=== PATIENT | male | born 1970 | race Caucasian/White ===

== ENCOUNTER 2023-06-26 12:14 | Inpatient (IN) ==
--- NOTE | 2023-06-26 12:39 | Emergency Department Note ---
ED Provider Note History of Present Illness Chief Complaint: Fall Time Seen by Provider: 06/26/23 12:38 This is a 53-year-old male otherwise healthy on no daily medications who presents to the emergency department via EMS with low back pain secondary to a fall that occurred at work. Patient works for [employer] and was on the second rung of a ladder changing a light fixture. The ladder tipped backwards and he tried to catch himself but ended up falling directly onto his buttock. He reports pain in his tailbone and his upper low back. Describes it as very uncomfortable and difficult to find a comfortable position. He was able to get himself back up off the ground after a few minutes. He did not strike his head, no headache, neck pain, chest pain, shortness of breath, abdominal pain. Has not any bowel or bladder incontinence. Denies any numbness or tingling in his legs or toes. Was able to stand on his legs. Has not received anything for the pain yet. Denies any history of chronic back pain. Does not take blood thinners Home Medications Medication Instructions Recorded Confirmed Type albuterol sulfate 90 mcg/actuation 2 puff inhalation QID PRN 06/26/23 06/26/23 History aerosol inhaler Shortness Of Breath Or Wheezing Allergies Allergy/AdvReac Type Severity Reaction Status Date / Time animal dander AdvReac Unknown Verified 06/26/23 15:44 Past Med/Surg History Medical History Anxiety and depression Tobacco use Asthma Surgical History No pertinent past surgical history Family History (Updated 06/26/23 @ 15:47 by Yasmin Lopez PA-C) Mother Diabetes Sister Diabetes Lung cancer Father Heart disease Social History Smoking Status: Current every day smoker Tobacco Type: Cigarettes Age Started Using Tobacco: 13; Cigarettes Per Day: 1 pack per day; Second Hand Exposure: No; Do You Dip or Chew Tobacco: No; Hx Alcohol Use: No Hx Substance Use: No Preferred Language: Upper Sorbian [employer] Pet Required: No Beliefs That Will Affect Care: None Current Living Situation: Spouse and Family Other Information That Helps Us Care for You: No Feels Safe at Home: Yes Safety Concerns: Feels Safe At This Time Assistive Devices: Glasses Physical Exam Vital Signs Vital Signs - 24 hr 06/26/23 12:20 06/26/23 12:39 06/26/23 12:39 Temperature 97.7 F Temperature Source Oral Pulse Rate 85 74 Pulse Rate [Apical] 75 Pulse Rhythm [Apical] Regular Pulse Strength [Apical] Normal Respiratory Rate 18 16 Respiratory Effort / Characteristics Non-Labored Spontaneous Non-Labored Spontaneous Respiratory Depth Normal Normal Respiratory Pattern Regular Regular Blood Pressure 128/77 Blood Pressure [Right Arm] 128/77 Blood Pressure Mean 94 Blood Pressure Mean [Right Arm] 94 Blood Pressure Position Sitting Blood Pressure Position [Right Arm] Semi-fowlers Pulse Oximetry 98 99 Oxygen Delivery Method Room Air Room Air Sepsis Recent Fever Within 48 Hours No Sepsis New/Unexplained Change in Mental Status N/A Sepsis Action Taken by Nursing No Action Required 06/26/23 13:49 06/26/23 14:00 06/26/23 15:00 Temperature Temperature Source Pulse Rate 77 78 86 Pulse Rate [Apical] Pulse Rhythm [Apical] Pulse Strength [Apical] Respiratory Rate 13 14 14 Respiratory Effort / Characteristics Respiratory Depth Respiratory Pattern Blood Pressure 121/76 115/74 122/74 Blood Pressure [Right Arm] Blood Pressure Mean 91 87 90 Blood Pressure Mean [Right Arm] Blood Pressure Position Blood Pressure Position [Right Arm] Pulse Oximetry 97 97 Oxygen Delivery Method Room Air Room Air Sepsis Recent Fever Within 48 Hours Sepsis New/Unexplained Change in Mental Status Sepsis Action Taken by Nursing CONSTITUTIONAL: Well developed, well nourished, appears to be uncomfortable especially with changes in position secondary to low back pain HEAD: Normocephalic, atraumatic. NECK: Full active range of motion. No spinous process tenderness RESPIRATORY: Breathing unlabored and symmetric. Lungs clear to auscultation bilaterally. No wheeze, rales, or rhonchi. CARDIOVASCULAR: Regular rate and rhythm. No murmurs, rubs, or gallops. DP pulses 2+ bilaterally. CHEST: Nontender, no crepitus. ABDOMEN: Normal bowel sounds. Soft, nontender, no peritonitis. No masses. No CVA tenderness bilateral MUSCULOSKELETAL: Back: There is no midline thoracic tenderness. There is reproducible midline high lumbar tenderness. Mild tenderness in the sacral area. No paraspinal tenderness. No tenderness with compression of the pelvis. Patient able to perform straight leg raise bilaterally. Moves upper and lower extremities at all joints SKIN: [place], warm, dry. NEUROLOGIC: Awake, alert, oriented. Gaze is conjugate. Face symmetric. Strength 5+ in bilateral lower extremities. No sensory deficits in bilateral lower extremities. PSYCHIATRIC: Appropriate. Normal affect. Course Consultations Consultation #1: Spoke with Dr. Hough (orthospine on-call) regarding the patient's injuries. He reviewed his CT imaging. He recommends admitting the patient under the medicine team with consultation. Patient will require bracing. Can be bedrest and gentle ambulation to the restroom Administered Medications Acetaminophen (Acetaminophen 500 Mg Tab) 1,000 mg PO Q8H SERA Stop: 07/26/23 20:59 Last Admin: 06/26/23 20:29 Dose: 1,000 mg Documented By: MARIA DEL CARMEN Docusate Sodium (Docusate Sodium 100 Mg Cap) 100 mg PO BID SERA Stop: 07/26/23 20:59 Last Admin: 06/26/23 20:30 Dose: 100 mg Documented By: MARIA DEL CARMEN Oxycodone HCl (Oxycodone Hcl Ir 5 Mg Tab (Immediate Release)) 5 mg PO Q6H PRN PRN Reason: Moderate Pain (Scale 4, 5, 6) Stop: 07/10/23 18:30 Last Admin: 06/26/23 19:27 Dose: 5 mg Documented By: MARIA DEL CARMEN Discontinued Medications Acetaminophen (Acetaminophen 325 Mg Tab) 650 mg PO NOW STA Stop: 06/26/23 12:53 Last Admin: 06/26/23 12:59 Dose: 650 mg Documented By: JOCELYNE Morphine Sulfate (Morphine Sulfate 4 Mg/Ml 1 Ml Carp\Vial) 4 mg IV NOW STA Stop: 06/26/23 12:53 Last Admin: 06/26/23 13:00 Dose: 4 mg Documented By: JOCELYNE Morphine Sulfate (Morphine Sulfate 4 Mg/Ml 1 Ml Carp\Vial) 4 mg IV NOW STA Stop: 06/26/23 15:25 Last Admin: 06/26/23 15:27 Dose: 4 mg Documented By: JHON Nicotine (Nicotine 21 Mg/24 Hr Tdsy) 21 mg TD NOW STA Stop: 06/26/23 15:21 Last Admin: 06/26/23 15:28 Dose: 21 mg Documented By: JHON Medical Decision Making Differential Diagnosis Fracture, dislocation, subluxation, disc bulge, disc herniation, neurovascular injury, doubt solid organ injury, doubt hematoma, contusion, sprain, strain, among other pathology Laboratory Data 06/26/23 16:26 06/26/23 16:26 Imaging Data Radiologist's Impression: Lumbar Spine CT 06/26/23 12:52 CT lumbar spine wo con HISTORY: 53 years-old Male fall onto buttock, upper lumbar tender acute low back pain status post fall COMPARISON: CT pelvis of same day TECHNIQUE: Multiple axial CT images of the lumbar spine were obtained with the use of IV contrast. A dose lowering technique was used consistent with the principals of ALARA. FINDINGS: Acute lower sacral fracture is not imaged on this study. Mild multilevel intervertebral disc space narrowing, spondylitic spurring and moderate facet arthrosis. There is an acute appearing anterosuperior L1 compression deformity demonstrating approximately 40% vertebral body height loss without retropulsion. No fracture extension into the posterior elements. There is only minimal paravertebral edema. No additional acute fracture or subluxation identified. Suboptimal evaluation of the central canal and neural foramina by CT technique. No high-grade central canal or foraminal stenosis identified. There is mild multilevel central canal and neural foraminal narrowing secondary to annular disc bulging and spondylitic spurring. There is suggestion of moderate left- sided foraminal narrowing at L5-S1. The imaged intra-abdominal structures demonstrate no acute abnormality. Atherosclerosis of the aorta. IMPRESSION: Acute appearing 40% compression deformity of the L1 vertebral body with mild paravertebral edema and no retropulsion. ACT 112: Negative or not required by law. The above report was generated using voice recognition software. It may contain grammatical, syntax or spelling errors. Electronically signed by: Venancio Burns M.D. 06/26/2023 2:[address] 06/26/23 12:[address] DOSE: HISTORY: fall onto buttock, high lumbar/sacral tender TECHNIQUE: Multiaxial CT images of the pelvis were performed and reformatted in the sagittal and coronal plane without the use of contrast. A dose lowering technique was utilized adhering to the principles of ALARA. COMPARISON: None. FINDINGS: The lumbar spine will be better appreciated on the same day lumbar spine CT. There is nondisplaced oblique fracture through the S4 level of the sacrum. There is a possible nondisplaced oblique fracture within the proximal coccyx. These are best seen on the sagittal views. No acute fracture or dislocation within the right or left hip. No additional fractures within the pelvic bones. 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 There is mild presacral fat stranding/edema. There is a small fat-containing right inguinal hernia. No pelvic hematoma. The prostate gland is enlarged measuring 6.3 cm. No pelvic free fluid or pelvic lymphadenopathy. Colonic diverticulosis. Normal appendix. IMPRESSION: 1. Nondisplaced fracture through the S4 level of the sacrum. 2. Possible nondisplaced fracture within the proximal coccyx. ACT 112: Negative or not required by law. Electronically signed by: Gutierrez Patricia M.D. 06/26/2023 1:41 PM MDM Narrative This is a 53-year-old male who presents to the emergency department with low back pain secondary to a fall from a ladder about 2 feet off the ground landing directly on his buttocks. Did not strike his head. No neurologic deficits. See above for further details. Patient does appear to be uncomfortable especially with changes in position related to his low back. He has reproducible tenderness in the high lumbar midline spine and mild tenderness in the sacral area. Able to perform straight leg raise bilaterally. No sensory deficits. Moving all of his joints of the lower extremities. Patient was given a dose of IV morphine and Tylenol. CT of the lumbar spine and pelvis was obtained demonstrating 40% compression fracture of L1 with no retropulsion. Nondisplaced fracture through through S4 of the sacrum and possible nondisplaced fracture through the proximal coccyx. Patient required an additional dose of morphine for his pain. I called and spoke with Dr. Hough (orthospine) who recommended admitting the patient under medicine with consult and the patient will require bracing. I discussed this with the patient he was agreeable with this plan. Case reviewed with Yasmin Lopez PA-C with [facility] who agrees to admit the patient under Dr. Ortiz. Impression Lumbar compression fracture, Fx sacrum/coccyx-closed, Fall Discharge Plan Visit Data Chief Complaint: Fall ED Provider: Sotero Frank ED Midlevel Provider: Scheletsky,Leobardo B. Discharge Problem: Lumbar compression fracture, Fx sacrum/coccyx-closed, Fall Patient Disposition: Admitted As Inpatient Condition: Fair Discharge Instructions Interventions: ED Discharge Assessment Last Done: 06/26/23 17:54 Discharge Problem: Lumbar compression fracture Qualifiers: Encounter type: initial encounter Lumbar vertebra fracture level: L1 Qualified Code(s): S32.010A - Wedge compression fracture of first lumbar vertebra, initial encounter for closed fracture Fx sacrum/coccyx-closed Qualifiers: Encounter type: initial encounter Qualified Code(s): S32.10XA - Unspecified fracture of sacrum, initial encounter for closed fracture Fall Qualifiers: Encounter type: initial encounter Qualified Code(s): W19.XXXA - Unspecified fall, initial encounter
[2023-06-26] MEDS: ACETAMINOPHEN 325 MG TAB PO STA (12:59)
[2023-06-26] MEDS: MoRPHine SULFATE 4 MG/ML 1 ML CARP\\VIAL IV STA ×2 (13:00→15:27)
--- NOTE | 2023-06-26 13:42 | CT Scan Report ---
PELVIS CT CT DOSE: HISTORY: fall onto buttock, high lumbar/sacral tender TECHNIQUE: Multiaxial CT images of the pelvis were performed and reformatted in the sagittal and stevan nal plane without the use of contrast. A dose lowering technique was utilized adhering to the princi ples of ARACELIS. COMPARISON: None. FINDINGS: The lumbar spine will be better appreciated on the same day lumbar spine CT. There is nondi splaced oblique fracture through the S4 level of the sacrum. There is a possible nondisplaced oblique fracture within the proximal coccyx. These are best seen on the sagittal views. No acute fracture or dislocation within the right or left hip. No additional fractures within the pelvic bones. 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 There is mild presacral fat stranding/edema. There is a small fat-containing right inguinal hernia. No pelvic hematoma. The prostate gland is enlarged measuring 6.3 cm. No pelvic free fluid or pelvic lymphadenopathy. Colonic diverticulosis. Normal appe ndix. IMPRESSION: 1. Nondisplaced fracture through the S4 level of the sacrum. 2. Possible nondisplaced fracture within the proximal coccyx. ACT 112: Negative or not required by law. Electronically signed by: Gutierrez Patricia M.D. 06/26/2023 1:41 PM
--- NOTE | 2023-06-26 14:09 | CT Scan Report ---
CT lumbar spine wo con HISTORY: 53 years-old Male fall onto buttock, upper lumbar tender acute low back pain status post fa ll COMPARISON: CT pelvis of same day TECHNIQUE: Multiple axial CT images of the lumbar spine were obtained with the use of IV contrast. A dose lowering technique was used consistent with the principals of ARACELIS. FINDINGS: Acute lower sacral fracture is not imaged on this study. Mild multilevel intervertebral disc space na rrowing, spondylitic spurring and moderate facet arthrosis. There is an acute appearing anterosuperio r L1 compression deformity demonstrating approximately 40% vertebral body height loss without retropu lsion. No fracture extension into the posterior elements. There is only minimal paravertebral edema. No additional acute fracture or subluxation identified. Suboptimal evaluation of the central canal and neural foramina by CT technique. No high-grade central canal or foraminal stenosis identified. There is mild multilevel central canal and neural foraminal narrowing secondary to annular disc bulging and spondylitic spurring. There is suggestion of moderate left-sided foraminal narrowing at L5-S1. The imaged intra-abdominal structures demonstrate no acute abnormality. Atherosclerosis of the aorta. IMPRESSION: Acute appearing 40% compression deformity of the L1 vertebral body with mild paravertebral edema and no retropulsion. ACT 112: Negative or not required by law. The above report was generated using voice recognition software. It may contain grammatical, syntax o r spelling errors. Electronically signed by: Venancio Burns M.D. 06/26/2023 2:06 PM
[2023-06-26] MEDS: NICOTINE 21 MG/24 HR TDSY TD STA (15:28)
--- NOTE | 2023-06-26 15:37 | History & Physical Report ---
Date of Service June 26, 2023 Assessment & Plan (1) Lumbar compression fracture: (2) Fx sacrum/coccyx-closed: (3) Fall: Plan: Patient is a 53-year-old male with PMH of asthma, anxiety, depression, tobacco use presented to ER with complaint of 2-3 foot fall off a ladder, landing on buttocks and low back pain. In ER vitals stable CT Lumbar spine: Acute appearing 40% compression deformity of the L1 vertebral body with mild paravertebral edema and no retropulsion. CT Pelvis: Nondisplaced fracture through the S4 level of the sacrum. Possible nondisplaced fracture within the proximal coccyx. In ER given Tylenol, morphine Currently pain controlled Scheduled Tylenol. oxycodone, morphine prn pain Fall precautions Bedrest with BRP Ortho spine consult. ER provider spoke with Dr Hough who recommended admission and likely will require fitting for brace (4) Leukocytosis: Plan: WBC: 16 Patient without fever/chills, N/V/D, cough or URI symptoms or urinary symptoms Hold on antibiotics Monitor and repeat CBC in am (5) Asthma: Plan: No signs of exacerbation Albuterol neb as needed (6) Tobacco use: Plan: Smoking cessation encouraged Nicotine patch DVT Prophylaxis SCDs Full Code as per discussion with pt Follows with Dr Lu Montes for routine care Pt was seen and care coordinated with Dr Ortiz. See addendum I spent a total of 75 minutes reviewing notes, outpatient records, labs, medication, coordinating, documenting and providing care for this patient excluding time spent in the performance of separately billed services. History of Present Illness Chief Complaint: Fall Primary Care Provider: Lu Montes DO Patient is a 53-year-old male with PMH of asthma, anxiety, depression, tobacco use presented to ER with complaint of falling off a ladder and low back pain. History obtained from patient and outpatient chart review. Patient states was working and was approx 2-3 feet up on ladder when the ladder started to tip and patient slipped and fell onto the ground landing on his buttocks. Patient reports discomfort to buttocks and low back. Pain is aggravated with movement. Denies hitting head. Denies any dizziness, chest pain, shortness of breath prior to fall. History of asthma, uses inhaler rarely and is typically when is around animals. Denies any other known injury. Denies fever/chills, diaphoresis, N/V/D/C, WOOTEN, dizziness, syncope, vision changes, neck pain, CP, SOB, palpitations, cough, rhinorrhea, abdominal pain, paresthesias, weakness, extremity weakness, loss of control of bowel or bladder, upper extremity pain, lower extremity pain, extremity edema, rashes, urinary symptoms. Allergies Allergy/AdvReac Type Severity Reaction Status Date / Time animal dander AdvReac Unknown Verified 06/26/23 15:44 Home Medications Medication Instructions Recorded Confirmed Type albuterol sulfate 90 mcg/actuation 2 puff inhalation QID PRN 06/26/23 06/26/23 History aerosol inhaler Shortness Of Breath Or Wheezing Past Med/Surg History Medical History Anxiety and depression Tobacco use Asthma Surgical History No pertinent past surgical history Family History (Updated 06/26/23 @ 15:47 by Yasmin Lopez PA-C) Mother Diabetes Sister Diabetes Lung cancer Father Heart disease Social History Smoking Status: Current every day smoker Tobacco Type: Cigarettes Age Started Using Tobacco: 13; Cigarettes Per Day: 1 pack per day; Second Hand Exposure: No; Do You Dip or Chew Tobacco: No; Hx Alcohol Use: No Hx Substance Use: No Preferred Language: Indonesian [employer] 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: No Beliefs That Will Affect Care: None Current Living Situation: Spouse and Family Other Information That Helps Us Care for You: No Feels Safe at Home: Yes Safety Concerns: Feels Safe At This Time Assistive Devices: Glasses Review of Systems Review of Systems: All systems reviewed & are unremarkable except as noted in HPI & below Physical Exam Physical Exam: General: no acute distress, WDWN Head: normocephalic, atraumatic Eyes: conjunctiva non-injected, anicteric ENT: normal inspection external ears, nose, mucous membranes moist Neck: supple, trachea midline, non-tender, ROM intact Lungs: clear, no respiratory distress, no wheezing/rhonchi/rales CV: RRR, no murmur, no pretibial edema Abd: normal BS, soft, non-tender Back: no discoloration, +tenderness to palpation low back over midline Ext: no cyanosis, no calf tenderness. ROM extremities intact, distal pulses palpable, sensation to light touch intact. Neuro: A&O x 3, no focal deficits noted, normal affect Skin: warm, dry Results & Data Results & Data Vital Signs (Past 12 Hours) Vital Signs Temp Pulse Pulse Resp BP BP Pulse Ox 06/26/23 14:00 78 14 115/74 97 06/26/23 13:49 77 13 121/76 97 06/26/23 12:39 74 06/26/23 12:39 75 16 128/77 99 06/26/23 12:20 36.5 C 85 18 128/77 98 O2 Del Method 06/26/23 14:00 Room Air 06/26/23 13:49 Room Air 06/26/23 12:39 06/26/23 12:39 Room Air 06/26/23 12:20 Room Air Laboratory Results Short CBC 06/26/23 Range/Units 16:26 WBC 16.07 H (4.8-10.8) K/ul Hgb 14.5 (14.0-18.0) g/dl Hct 41.1 L (42.0-52.0) % Plt Count 286 (130-400) K/uL BMP 06/26/23 16:26 Sodium 137 Potassium 3.9 Chloride 106 Carbon Dioxide 24 BUN 12 Creatinine 0.92 Glucose 146 H Calcium 8.8 Liver Function 06/26/23 Range/Units 16:26 Total Bilirubin 0.6 (0.2-1.0) mg/dl AST 21 (13-39) U/L ALT 13 (7-52) U/L Alkaline Phosphatase 62 (34-104) U/L Albumin 4.0 (3.4-5.0) gm/dl Diagnostic Findings Lumbar Spine CT 06/26/23 12:52 CT lumbar spine wo con HISTORY: 53 years-old Male fall onto buttock, upper lumbar tender acute low back pain status post fall COMPARISON: CT pelvis of same day TECHNIQUE: Multiple axial CT images of the lumbar spine were obtained with the use of IV contrast. A dose lowering technique was used consistent with the principals of ARACELIS. FINDINGS: Acute lower sacral fracture is not imaged on this study. Mild multilevel intervertebral disc space narrowing, spondylitic spurring and moderate facet arthrosis. There is an acute appearing anterosuperior L1 compression deformity demonstrating approximately 40% vertebral body height loss without retropulsion. No fracture extension into the posterior elements. There is only minimal paravertebral edema. No additional acute fracture or subluxation identified. Suboptimal evaluation of the central canal and neural foramina by CT technique. No high-grade central canal or foraminal stenosis identified. There is mild multilevel central canal and neural foraminal narrowing secondary to annular disc bulging and spondylitic spurring. There is suggestion of moderate left- sided foraminal narrowing at L5-S1. The imaged intra-abdominal structures demonstrate no acute abnormality. Atherosclerosis of the aorta. IMPRESSION: Acute appearing 40% compression deformity of the L1 vertebral body with mild paravertebral edema and no retropulsion. ACT 112: Negative or not required by law. The above report was generated using voice recognition software. It may contain grammatical, syntax or spelling errors. Electronically signed by: Venancio Burns M.D. 06/26/2023 2:[address] 06/26/23 12:[address] DOSE: HISTORY: fall onto buttock, high lumbar/sacral tender TECHNIQUE: Multiaxial CT images of the pelvis were performed and reformatted in the sagittal and coronal plane without the use of contrast. A dose lowering technique was utilized adhering to the principles of ALARA. COMPARISON: None. FINDINGS: The lumbar spine will be better appreciated on the same day lumbar spine CT. There is nondisplaced oblique fracture through the S4 level of the sacrum. There is a possible nondisplaced oblique fracture within the proximal coccyx. These are best seen on the sagittal views. No acute fracture or dislocation within the right or left hip. No additional fractures within the pelvic bones. 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 There is mild presacral fat stranding/edema. There is a small fat-containing right inguinal hernia. No pelvic hematoma. The prostate gland is enlarged measuring 6.3 cm. No pelvic free fluid or pelvic lymphadenopathy. Colonic diverticulosis. Normal appendix. IMPRESSION: 1. Nondisplaced fracture through the S4 level of the sacrum. 2. Possible nondisplaced fracture within the proximal coccyx. ACT 112: Negative or not required by law. Electronically signed by: Gutierrez Patricia M.D. 06/26/2023 1:41 PM Supervising Physician Co-Signing Physician Notes I have seen and discussed the case with the collaborating EDGAR. I agree with the above H&P. I have reviewed and confirmed the patients medical history, the findings on physical examination, and the patients diagnosis and treatment plan with John HERNÁNDEZ and agree with the information documented. In short, Mr. Madera is a 53-year-old male with PMH of asthma, anxiety, depression, tobacco use who is admitted for management of L1 compression fracture and S4 fracture. Patient fell from approximately 3ft off of ladder on to ground with direct impact. Pain controlled on exam. Plan for admission for pain management and Ortho-spine consult--will likely be conservative management with LSO brace. Rest of plan as above I spent a total of 35 minutes coordinating, documenting, and providing care for this patient excluding time spent in the performance of separately billed services. All of the aforementioned completed outside of collaborating with the assigned physician assistance for a full treatment plan.
[2023-06-26 16:44] LABS: Basophils # (auto) 0.05 K/uL (0.00-0.20); Basophils % (auto) 0.3 %; Eosinophils # (auto) 0.07 K/uL (0.00-0.50); Eosinophils % (auto) 0.4 %; Hematocrit (blood only) 41.1 % (42.0-52.0); Hemoglobin 14.5 g/dl (14.0-18.0); Immature Granulocytes # (auto) 0.15 K/uL (0.01-0.20); Immature Granulocytes % (auto) 0.9 %; Lymphocytes % (auto) 8.1 %; Mean Corpuscular Hemoglobin 31.1 pg (25.0-34.0); Mean Corpuscular Hgb Conc 35.3 g/dL (32.0-36.0); Mean Corpuscular Volume 88.2 fL (80.0-100.0); Mean Platelet Volume 9.2 fL (9.4-12.4); Monocytes # (auto) 0.62 K/uL (0.11-0.59); Monocytes % (auto) 3.9 %; Neutrophils # (auto) 13.88 K/uL (1.40-6.50); Neutrophils % (auto) 86.4 %; Platelet Count 286 K/uL (130-400); RDW Coefficient of Variation 12.1 % (11.5-14.5); RDW Standard Deviation 38.9 fL (36.4-46.3); Red Blood Count 4.66 M/uL (4.70-6.10); White Blood Count 16.07 K/ul (4.8-10.8)
[2023-06-26 16:59] LABS: Albumin Globulin Ratio 1.3 (0.9-2); Bilirubin,Total 0.6 mg/dl (0.2-1.0); Calcium 8.8 mg/dl (8.6-10.3); Est GFR (African American) 108.1 ml/min; Est GFR (Non-African American) 93.3 ml/min; Globulin 3.1 gm/dl (2.5-4.0); Potassium 3.9 mmol/L (3.5-5.1); Total Protein 7.1 gm/dl (6.0-8.3)
[2023-06-26 17:08] LABS: INR 1.1 (0.9-1.1); Partial Thromboplastin Ratio 0.9; Partial Thromboplastin Time 26 Seconds (21-31); Prothrombin Time 11.5 Seconds (9.0-12.0)
[2023-06-26] MEDS ORDERED: ALBUTEROL HFA 8 GM INHALER INH PRN (18:31)
[2023-06-26] MEDS ORDERED: ONDANSETRON INJ 2 MG/ML 2 ML VIAL IV PRN (18:31)
[2023-06-26] MEDS ORDERED: POLYETHYLENE (MIRALAX) 17 GM PACK PO PRN (18:31)
[2023-06-26] MEDS ORDERED: MoRPHine SULFATE 4 MG/ML 1 ML CARP\\VIAL IV PRN (18:31)
[2023-06-26] MEDS ORDERED: MAGNESIUM HYDROXIDE SUSP 30 ML UDC PO PRN (18:31)
--- OUTSIDE RECORDS SUMMARY | 2023-06-26 18:39 | External Medical Summary | Summary of Care ---
Author Name Unknown Organization [facility] Address [address] [place] [address] Phone [phone] Care Team Providers Care Foam Rubber Mixer Name Role Phone Lu Montes DO Primary Care Provider [phone] Reason for Visit * Auth/Cert Specialty Diagnoses / Procedures Referred By Contac t Referred To Contact Diagnoses History of colon polyps Hx of adenomatous colonic polyps History of colon polyps [Z86.010] Hx of adenomatous colonic polyps [Z86.010] Procedures COLONOSCOPY, DIAGNOSTIC (RECTUM) COLONOSCOPY FLEXIBLE PROXIMAL DIAGNOSTIC Referral ID Status Reason Start Date Expiration Date Visits Re quested Visits Authorized [id number] [phone] Encounter Details Date Type Department Care Team Description 02/08/2023 Hospital Encounter ENDO [facility], Endoscopy Room [facility] [address] [facility] [place] [phone] Rico Poon MD [address] [facility] [address] Colonoscopy Allergies Active Allergy Reactions Severity Noted Date Comments Dog Dander 05/21/2009 Asthma flare severe documented as of this encounter (statuses as of 02/08/2023) Medications Medication Sig Dispensed Refills Start Date End Date Status Albuterol Sulfate HFA 108 (90 Base) MCG/ACT Inhalation Aerosol SolutionIndications:As thma with severity to be determined INHALE 2 PUFFS 4 TIMES DAILY. 18 g 1 09/20/2022 Active documented as of this encounter (statuses as of 02/08/2023) Active Problems Problem Noted Date Tobacco use disorder 05/25/2009 Asthma with severity to be determined Overview: ICD-10 update of inactive term Tobacco use disorder Anxiety Depression Anxiety OA (osteoarthritis) documented as of this encounter (statuses as of 02/08/2023) Resolved Problems Problem Noted Date Resolved Date Major depressive disorder 2014 Overview: ICD-10 update of inactive term documented as of this encounter (statuses as of 02/08/2023) Immunizations Name Administration Dates Next Due Pneumococcal Polysaccharide PPV23 (Pneumovax) TDAP (age 10 and older)(Boostrix) 11/15/2018 TDAP (age 11 and older)(Adacel) 12/28/2006 documented as of this encounter Social History Tobacco Use Types Packs/Day Years Used Date Smoking Tobacco: Every Day Cigarettes 1 25 Smokeless Tobacco: Never Comments:1 ppd x 25 yrs Alcohol Use Standard Drinks/Week Comments No 0 (1 standard drink = 0.6 oz pur e alcohol) Food Insecurity Answer Date Recorded Within the past 12 months, y ou worried that your food would run out before you got money to buy more. Never true 11/15/2018 Within the past 12 months, t he food you bought just didn't last and you didn't have money to get more. Never true 11/15/2018 Sex Assigned at Date Recorded Not on file Job Start Date Occupation Industry Not on file Not on file Not on file documented as of this encounter Last Filed Vital Signs Vital Sign Reading Time Taken Comments Blood Pressure 106/68 02/08/2023 10:18 AM EDT Pulse 70 02/08/2023 10:18 AM EDT Temperature 36.3 C (97.4 F) 02/08/2023 10:03 AM E DT Respiratory Rate 18 02/08/2023 10:18 AM EDT Oxygen Saturation 97% 02/08/2023 10:18 AM EDT Inhaled Oxygen Concentration - - Weight 97.1 kg (214 lb) 02/08/2023 9:01 AM EDT Height 182.9 cm (6') 02/08/2023 9:01 AM EDT Body Mass Index 29.02 02/08/2023 9:01 AM EDT documented in this encounter H&P Notes * Rico Poon MD - 02/08/2023 9:31 AM EDT Endoscopy Pre-Procedure Assessment Name: Garo Madera Jr. Date: 02/08/2023 Time: 9:31 AM Procedure: Colonoscopy; with Indication(s) of colon polyp surveillance Endoscopy Pre-Procedure Assessment: Prior to the procedure, the patient was identified. The patient's history, medications and allergies were reviewed as per the Anesthesia Assessment. The patient is competent. The risks and benefits of the proposed procedure and the planned sedation were discussed with the patient. All questions were answered and informed consent for the procedure was obtained. This patient has undergone a preprocedural evaluation. A determination has been made to proceed with the planned procedure under [facility] procedural guidelines and the [facility] Non-Emergent, Elective Medical Services and Treatment Recommendations (published on 08-27-19). The community and hospital prevalence of COVID-19 has been discussed as well as this patient's specific risks associated with SARS-CoV-19 infection. Based upon the clinical acuity and patient-specific care considerations, this procedure is deemed a Tier II - Intermediate acuity treatment or service with either progression or the threat of progressive disease related to the delay in treatment. Not providing the service has the potential for increasing morbidity or mortality. BP 118/76 | Pulse 69 | Temp 36.3 C (97.4 F) (Tympanic) | Resp 16 | Ht 1.829 m (6') | Wt 97.1 kg(214 lb) | SpO2 97% | BMI 29.02 kg/m | BSA 2.22 m Prior to Admission medications Medication Sig Last Dose Discont. Albuterol Sulfate HFA 108 (90 Base) MCG/ACT Inhalation Aerosol Solution INHALE 2 PUFFS 4 TIMES DAILY. Past Month Review of patient's allergies indicates: Allergen Reactions Dog Dander Asthma flare severe Physical Exam: Mental Status Examination: alert and oriented. General: nad, calm Airway Examination: normal oropharyngeal airway and neck mobility. Respiratory Examination: symmetrical excursion Abd:soft/ntd ASA Grade: II - A patient with mild systemic disease. After reviewing the risks and benefits, the patient was deemed in satisfactory condition to undergothe procedure. The anesthesia plan was to use general anesthesia. Rico Poon MD 02/08/2023 documented in this encounter Procedure Notes * Lu Montes DO - 02/08/2023 9:38 AM EDTAssociated Order(s): COLONOSCOPY [facility] Patient Name: Garo Madera Procedure Date: 02/08/2023 9:38 AM Date of : 1970 Admit Type: Outpatient Note Status: Finalized Date of : 1970 Admit Type: Outpatient Age: 52 Room: Endo 4 Gender: Male Note Status: Finalized Procedure: Colonoscopy Indications: High risk colon cancer surveillance: Personal history of multiple (3 or more) adenomas Providers: Rico Poon MD (Doctor), Ben Hillman RN, Harley Mares CRNA (Anesthesia Staff) Referring MD: Lu Montes DO (Referring MD) Medicines: Propofol per Anesthesia Complications: No immediate complications. Estimated blood loss: None. Procedure: Pre-Anesthesia Assessment: - - Prior to the procedure, a History and Physical was performed, patient medications, allergies and sensitivities were reviewed. The patient's tolerance of previous anesthesia was reviewed. See [facility] for further details. - The risks, benefits, and alternatives of the procedure including the sedation options and risks were discussed with the patient. All questions were answered and informed consent was obtained. - Patient identification and proposed procedure were verified prior to the procedure by the physician and the nurse. The procedure was verified in the procedure room. - See [facility] for documentation of the pre-procedure assessment including ASA status. - After I obtained informed consent, the scope was carefully and meticulously passed under direct vision only when the lumen was definitively identified. CO2 insufflation was utilized throughout the entire procedure exclusively. After I obtained informed consent, the scope was passed under direct vision. All instruments were visually inspected immediately before and after removal from the patient to ensure they are fully intact. Throughout the procedure, the patient's blood pressure, pulse, and oxygen saturations were monitored continuously. The [id number] Colonoscope ([id number]) was introduced through the anus and advanced to the terminal ileum, with identification of the appendiceal orifice and IC valve. The colonoscopy was performed without difficulty. The patient tolerated the procedure well. The quality of the bowel preparation was good. Findings & Specimens: The terminal ileum appeared normal. Two sessile polyps were found in the ascending colon. The polyps were 2 to 4 mm in size. These polyps were removed with a cold snare. Resection and retrieval were complete. The pathology specimen was placed into Bottle Number 1. A 3 mm polyp was found in the sigmoid colon. The polyp was sessile. The polyp was removed with a cold snare. Resection and retrieval were complete. The pathology specimen was placed into Bottle Number 2. Multiple small-mouthed diverticula were found in the sigmoid colon. Internal hemorrhoids were found during retroflexion. The exam was otherwise without abnormality on direct and retroflexion views. Impression: - The examined portion of the ileum was normal. - Two 2 to 4 mm polyps in the ascending colon, removed with a cold snare. Resected and retrieved. - One 3 mm polyp in the sigmoid colon, removed with a cold snare. Resected and retrieved. - Diverticulosis in the sigmoid colon. - Internal hemorrhoids. - The examination was otherwise normal on direct and retroflexion views. Recommendation: - Discharge patient to home (with escort). - Repeat colonoscopy in 3 years for surveillance based on pathology results. - Return to referring physician as previously scheduled. - Patient has a contact number available for emergencies. The signs and symptoms of potential delayed complications were discussed with the patient. Return to normal activities tomorrow. Written discharge instructions were provided to the patient. Rico Poon MD 02/08/2023 10:03:28 AM This report has been signed electronically. documented in this encounter Nursing Notes * Anette Hammer RN - 02/08/2023 10:46 AM EDT Patient is alert, pain free and tolerating po fluids prior to discharge. Patient has been visited by Dr. Lee. Patient has received and demonstrates understanding of discharge instructions. Patient ambulated to private auto accompanied by endo staff. * Anette Hammer RN - 02/08/2023 10:17 AM EDT Patient awake and tolerating clear liquids. Patient denies pain and nausea. Patients chair car driver called for transportation. * Anette Hammer RN - 02/08/2023 10:03 AM EDT Patient transferred to post endo s/p colonoscopy. Patient asleep. Respirations are even and unlabored on room air. NSR in the 60s on the monitor. Abdomen soft and non distended. Vital signs stable. * Ben Hillman RN - 02/08/2023 10:02 AM EDT See anesthesia record for medication administered during procedure. Ben Hillman RN Specimen(s) and location(s) verified with physician post procedure 10:02 AM Ben Hillman RN Pre cleaning of scope at the bedside started by metrology technician. No abdominal pressure given * Bette Capellan RN - 02/08/2023 9:02 AM EDT The following pt discharge instructions reviewed with pt prior to prodedure: No driving today. No alcohol today. No signing of legal documents. Rest as much as possible today and can return to normal activities tomorrow. No operating any heavy equipment today. Diet as tolerated. Pt verbalized understanding. documented in this encounter Plan of Treatment Upcoming Encounters Date Type Specialty Care Team Description 03/29/2023 Office Visit Family Medicine Lu Montes, [address] [facility] [place] [id number] 10/13/2023 Office Visit Urology Mik Govea MD [address] [place] [address] Pending Results Name Type Priority Associated Diagnoses Date /Time SURGICAL PATHOLOGY Pathology Routine History of colon polyps Hx of adenomatous colonic polyps 02/08/2023 10:02 AM EDT Scheduled Orders Name Type Priority Associated Diagnoses Orde r Schedule SURGICAL PATHOLOGY Pathology Routine History of colon polyps Hx of adenomatous colonic polyps Release Upon Ordering for 1 Occurrences starting 02/08/2023, 1 completed Scheduled Procedures Name Priority Associated Diagnoses Date/Ti me COLONOSCOPY FLEXIBLE PROXIMAL DIAGNOSTIC Recall History of colon polyps Hx of adenomatous colonic polyps 02/08/2023 9:35 AM EDT Health Maintenance Due Date Last Done Comments DISCUSS TOBACCO CESSATION (REFER TO SMARTSET #[id number]) 1970 Hepatitis B (1 of 3 - 3-dose series) 1970 COVID-19 Vaccine (#1) 1970 Pneumococcal Vaccine: Pediatrics (0 to 5 Years) and At-Risk Patients (6 to 64 Years) (2 - PCV) 12/09/2011 12/08/2010 Zoster Vaccines (1 of 2) 2018 Depression Screening 11/16/2019 11/15/2018 *SPIROMETRY ONCE FOR ASTHMA-ADULT 09/15/2022 Influenza Vaccine (FLU shot) (#1) 2023 Diabetes Screening 09/27/2025 09/27/2022, 1 07/09/2014, 05/05/2015, Additional history exists COLONOSCOPY-EVERY 3 YRS AGES 18-100 02/08/2026 02/08/2023, 03/13/2019, 03/13/2019, Additional history exists Lipid Panel 09/28/2027 09/27/2022, 05/0 01/2023, 08/22/2013, Additional history exists DTaP,Tdap,and Td Vaccines (3 - Td or Tdap) 11/15/2028 11/15/2018, 12/28/2006 Hepatitis C Screening Completed 09/27/2022 , 09/27/2022, 09/27/2022 LUNG CANCER SCREENING - USE SMARTSET [id number] Completed 10/11/2022 GARDASIL-HPV IMMUNIZATION SERIES Aged Out No longer eligible based on patient's age to complete this topic MENINGOCOCCAL (MENACTRA/MENVEO) Aged Out No longer eligible based on patient's age to complete this topic documented as of this encounter Medical Devices Not on filedocumented as of this encounter Procedures Procedure Name Priority Date/Time Associated Diagnosis Comments COLONOSCOPY 02/08/2023 9:38 AM EDT documented in this encounter Results * COLONOSCOPY (02/08/2023 9:38 AM EDT) 02/08/2023 9:38 AM EDT Procedure Note Lu Montes DO - 02/08/2023 9:[address] [facility] Patient Name: Garo Madera Procedure Date: 02/08/2023 9:38 AM Date of : 1970 Admit Type: Outpatient Note Status:Finalized Date of : 1970 Admit Type: Outpatient Age: 52 Room: [facility] 4 Gender: Male Note Status: Finalized Procedure: Colonoscopy Indications: High risk colon cancer surveillance: Personalhistory of multiple (3 or more) adenomas Providers: Rico Poon MD (Doctor), Ben Hillman RN,Harley Mares CRNA (Anesthesia Staff) Referring MD: Lu Montes DO (Referring MD) Medicines: Propofol per Anesthesia Complications: No immediate complications. Estimated blood loss:None. Procedure: Pre-Anesthesia Assessment: - - Prior to the procedure, a History and Physicalwas performed, patient medications, allergies and sensitivities were reviewed. Thepatient's tolerance of previous anesthesia was reviewed. See [facility] for furtherdetails. - The risks, benefits, and alternatives of theprocedure including the sedation options and risks were discussed with the patient.All questions were answered and informed consent was obtained. - Patient identification and proposed procedurewere verified prior to the procedure by the physician and the nurse. The procedure wasverified in the procedure room. - See [facility] for documentation of the pre-procedureassessment including ASA status. - After I obtained informed consent, the scope wascarefully and meticulously passed under direct vision only when the lumen wasdefinitively identified. CO2 insufflation was utilized throughout the entire procedureexclusively. After I obtained informed consent, the scope waspassed under direct vision. All instruments were visually inspected immediatelybefore and after removal from the patient to ensure they are fully intact. Throughout the procedure, the patient's bloodpressure, pulse, and oxygen saturations were monitored continuously. The [id number] ([id number]) was introduced through the anus and advanced to the terminalileum, with identification of the appendiceal orifice and IC valve. The colonoscopywas performed without difficulty. The patient tolerated the procedure well. Thequality of the bowel preparation was good. Findings & Specimens: The terminal ileum appeared normal. Two sessile polyps were found in the ascending colon. The polyps were2 to 4 mm in size. These polyps were removed with a cold snare. Resection and retrieval werecomplete. The pathology specimen was placed into Bottle Number 1. A 3 mm polyp was found in the sigmoid colon. The polyp was sessile.The polyp was removed with a cold snare. Resection and retrieval were complete. The pathology specimenwas placed into Bottle Number 2. Multiple small-mouthed diverticula were found in the sigmoid colon. Internal hemorrhoids were found during retroflexion. The exam was otherwise without abnormality on direct and retroflexionviews. Impression: - The examined portion of the ileum was normal. - Two 2 to 4 mm polyps in the ascending colon,removed with a cold snare. Resected and retrieved. - One 3 mm polyp in the sigmoid colon, removed witha cold snare. Resected and retrieved. - Diverticulosis in the sigmoid colon. - Internal hemorrhoids. - The examination was otherwise normal on directand retroflexion views. Recommendation: - Discharge patient to home (with escort). - Repeat colonoscopy in 3 years for surveillancebased on pathology results. - Return to referring physician as previouslyscheduled. - [email or web address] The signs and symptoms of potential delayed complications were discussed withthe patient. Return to normal activities tomorrow. Written discharge instructionswere provided to the patient. Rico Poon MD 02/08/2023 10:03:28 AM This report has been signed electronically. Lu Montes DO GASTRO LOWER documented in this encounter Visit Diagnoses Diagnosis History of colon polyps Personal history of colonic polyps Hx of adenomatous colonic polyps Personal history of colonic polyps documented in this encounter Administered Medications Inactive Administered Medications - up to 3 most recent administrations Medication Order MAR Action Action Date Dose Rate Site isolyte-S pH 7.4 infusion Intravenous, at 100 mL/hr, Plasma-LYTE 148, isolyte-S, and isolyte-S pH 7.4 are considered equivalent - including for MAR barcode scanning., CONTINUOUS, Starting on Mon02/08/23 at 0930, Until Mon02/08/23 at 1448, Pre-Op Continue from Pre-Op 02/08/2023 9:33 AM EDT 100 mL/hr New Bag 02/08/2023 9:09 AM EDT 100 mL/hr documented in this encounter Active and Recently Administered Medications Times are shown in EDT. Continuous Medication Order 02/06/2023 02/07/2023 02/08/2023 isolyte-S pH 7.4 infusion Intravenous, at 100 mL/hr, Plasma-LYTE 148, isolyte-S, and isolyte-S pH 7.4 are considered equivalent - including for MAR barcode scanning., CONTINUOUS, Starting on Mon02/08/23 at 0930, Until Mon02/08/23 at 1448, Pre-Op 0909 (New Bag - Prov ider: Bette Capellan RN)0933 (Continue from Pre-Op - Provider: Lori Toledo CRNA)0959 (Anes Intra-Op Fluid - Provider: Lori Toledo CRNA) documented in this encounter Care Teams Foam Rubber Mixer Relationship Specialty Start Date End Date Lu Montes DO [address] [place] [address] PCP - General Family Medicine 03/13/19 documented as of this encounter"
--- OUTSIDE RECORDS SUMMARY | 2023-06-26 18:39 | External Medical Summary | Summary of Care ---
Author Name Unknown Organization [facility] Address [address] [place] [address] Phone [phone] Care Team Providers Care Pharmacy Technician Instructor Name Role Phone Lu Montes DO Primary Care Provider [phone] Reason for Visit * Reason Comments Re-Check 6 mo check Encounter Details Date Type Department Care Team ([facility] st Contact Info) Description 03/29/2023 5:20 PM EST Office Visit Family [facility] [address] [place] [address] Lu Montes DO [address] [place] [address] Well adult exam*; Elevated fasting glucose; Need for shingles vaccine; Asthma with severity to be determined Allergies Active Allergy Reactions Criticality Noted Date Comments Dog Dander 05/21/2009 Asthma flare severe documented as of this encounter (statuses as of 04/04/2023) Medications Medication Sig Dispensed Refills Start Date End Date Status Albuterol Sulfate HFA 108 (90 Base) MCG/ACT Inhalation Aerosol SolutionIndications:As thma with severity to be determined INHALE 2 PUFFS 4 TIMES DAILY. 18 g 1 09/20/2022 Active documented as of this encounter (statuses as of 04/04/2023) Active Problems Problem Noted Date Diagnosed Date Tobacco use disorder 05/25/2009 Asthma with severity to be determined Overview: ICD-10 update of inactive term Tobacco use disorder Anxiety Depression Anxiety OA (osteoarthritis) documented as of this encounter (statuses as of 04/04/2023) Resolved Problems Problem Noted Date Diagnosed Date Resolved Date Major depressive disorder Overview: ICD-10 update of inactive term documented as of this encounter (statuses as of 04/04/2023) Immunizations Name Administration Dates Next Due Pneumococcal Polysaccharide PPV23 (Pneumovax) 12/08/2010 TDAP (age 10 and older)(Boostrix) 11/15/2018 TDAP (age 11 and older)(Adacel) 12/28/2006 Zoster Vaccine Recombinant (Shingrix) 04/04/2023 (Deferred: Patient Refused) documented as of this encounter Social History Tobacco Use Types Packs/Day Years Used Date Smoking Tobacco: Every Day Cigarettes 1 25 Smokeless Tobacco: Never Tobacco Cessation:Ready to Q uit: Not Asked; Counseling Given: Not Answered Comments:1 ppd x 25 yrs Alcohol Use Standard Drinks/Week Comments No 0 (1 standard drink = 0.6 oz pur e alcohol) PHQ-2 Answer Date Recorded PHQ Adult Total Score 0 03/29/2023 Hunger Vital Sign Answer Date Recorded Worried About Running Out of Food in the Last Ye ar Never true 03/11/2021 Ran Out of Food in the Last Year Never true 03/11/2021 Sex and Gender Information Value Date Recorded Sex Assigned at Not on file Gender Identity Not on file Sexual Orientation Not on file Job Start Date Occupation Industry Not on file Not on file Not on file documented as of this encounter Last Filed Vital Signs Vital Sign Reading Time Taken Comments Blood Pressure 128/62 03/29/2023 5:11 PM EST Pulse 72 03/29/2023 5:11 PM EST Temperature 36.8 C (98.2 F) 03/29/2023 5:11 PM ES T Respiratory Rate 18 03/29/2023 5:11 PM EST Oxygen Saturation - - Inhaled Oxygen Concentration - - Weight 100.7 kg (222 lb) 03/29/2023 5:11 PM EST Height - - Body Mass Index 30.11 02/08/2023 9:01 AM EDT documented in this encounter Progress Notes * Lu Montes DO - 03/29/2023 5:30 PM EST Subjective: Garo Madera Jr. is a 52 year old male. Chief Complaint Patient presents with Re-Check 6 mo check HPI: Pt presents for follow up today. Doing well, no complaints. Hasn't needed albuterol recently - triggered by animals. No recent asthma exacerbations. Continues to have L hip pain - PT helped a little bit, continues to do stretches. Told he was too young for a hip replacement. Takes ibuprofen if pain is severe. PHM: Patient Active Problem List Diagnosis Code Tobacco use disorder F17.200 Asthma with severity to be determined J45.909 Tobacco use disorder F17.200 Anxiety F41.9 Depression F32.A Anxiety F41.9 OA (osteoarthritis) M19.90 Current Outpatient Medications Medication Sig Dispense Refill Albuterol Sulfate HFA 108 (90 Base) MCG/ACT Inhalation Aerosol Solution INHALE 2 PUFFS 4 TIMES DAILY. 18 g 1 No current facility-administered medications for this visit. Past Medical History: Diagnosis Date Allergic rhinitis Anxiety Asthma, severity to be determined Depression Depressive disorder, not elsewhere classified OA (osteoarthritis) Tobacco use disorder Past Surgical History: Procedure Laterality Date COLONOSCOPY, DIAGNOSTIC (RECTUM) 08/19/2016 adenomatous polyp, diverticulosis, repeat 3 yrs/COLONOSCOPY FLEXIBLE PROXIMAL DIAGNOSTIC performed by Rico Poon MD at [facility] COLONOSCOPY, DIAGNOSTIC (RECTUM) 03/13/2019 adenomatous & hyperplastic polyps, diverticulosis, repeat 3 yrs/COLONOSCOPY FLEXIBLE PROXIMAL DIAGNOSTIC performed by Rico Poon MD at [facility] COLONOSCOPY, DIAGNOSTIC (RECTUM) 02/08/2023 diverticulosis/hemorrhoids/biposies show adenomatous polyps/recall 3 years/COLONOSCOPY FLEXIBLE PROXIMAL DIAGNOSTIC performed by Rico Poon MD at [facility] Review of patient's allergies indicates: Allergen Reactions Dog Dander Asthma flare severe Objective: BP 128/62 (BP Site: Left Arm, BP Position: Sitting, BP Cuff Size: Large) | Pulse 72 | Temp 36.8 C(98.2 F) (Tympanic) | Resp 18 | Wt 100.7 kg (222 lb) | BMI 30.11 kg/m | BSA 2.26 m Review of Systems: As per HPI, all other ROS neg. Physical Exam: General: alert, healthy and no distress Heart: regular rate & rhythm, no murmurs and no gallops Lungs: chest symmetric with normal AP diameter, no chest deformities noted, lungs clear to auscultation Extremities: no joint deformities, effusion, or inflammation, no edema Well adult exam (Primary) all appropriate HM items addressed Including genitourinary (pap, mammo, psa), colon cancer screening and immunizations as indicated by patient sex, age and history Elevated fasting glucose - HEMOGLOBIN A1C; Future; Expected date: 03/29/2023 Need for shingles vaccine - ZOSTER VACCINE RECOMB, 2 DOSE, IM (SHINGRIX) Asthma with severity to be determined Follow up: as needed. Lu Montes DO documented in this encounter Plan of Treatment Upcoming Encounters Date Type Department Care Team (Late st Contact Info) Description 10/13/2023 9:00 AM EDT Office Visit Urology, [facility] [address] [facility] [place] [address] Mik Govea MD [address] [facility] [address] [place] [address] Scheduled Orders Name Type Priority Associated Diagnoses Orde r Schedule HEMOGLOBIN A1C Lab Routine Elevated fasting glucose Expected: 03/29/2023 (Approximate), Expires: 03/28/2024 Scheduled Procedures Name Priority Associated Diagnoses Date/Ti me COLONOSCOPY FLEXIBLE PROXIMA L DIAGNOSTIC Recall History of colonic polyps Health Maintenance Due Date Last Done Comments DISCUSS TOBACCO CESSATION (REFER TO SMARTSET #1629) 1970 Hepatitis B (1 of 3 - 3-dose series) 1970 COVID-19 Vaccine (#1) 1970 Pneumococcal Vaccine: Pediatrics (0 to 5 Years) and At-Risk Patients (6 to 64 Years) (2 - PCV) 12/09/2011 12/08/2010 Zoster Vaccines (1 of 2) 2018 *SPIROMETRY ONCE FOR ASTHMA-ADULT 09/15/2022 Influenza Vaccine (FLU shot) (#1) 2023 Depression Screening 03/29/2024 03/29/2023 Diabetes Screening 09/27/2025 09/27/2022, 1 07/09/2014, 05/05/2015, Additional history exists COLONOSCOPY-EVERY 3 YRS AGES 18-100 02/08/2026 02/08/2023, 02/08/2023, 03/13/2019, Additional history exists Lipid Panel 09/28/2027 09/27/2022, 0501/2023, 08/22/2013, Additional history exists DTaP,Tdap,and Td Vaccines (3 - Td or Tdap) 11/15/2028 11/15/2018, 12/28/2006 LUNG CANCER SCREENING - USE SMARTSET 84435 Completed 10/11/2022 GARDASIL-HPV IMMUNIZATION SERIES Aged Out No longer eligible based on patient's age to complete this topic MENINGOCOCCAL (MENACTRA/MENVEO) Aged Out No longer eligible based on patient's age to complete this topic documented as of this encounter Medical Devices Not on filedocumented as of this encounter Visit Diagnoses Diagnosis Well adult exam- Primary Routine general medical examination at a health care facility Elevated fasting glucose Impaired fasting glucose Need for shingles vaccine Need for prophylactic vaccination and inoculation against other viral diseases Asthma with severity to be determined documented in this encounter Care Teams Pharmacy Technician Instructor Relationship Specialty Start Date End Date Lu Montes DO [address] [place] [address] PCP - General Family Medicine 03/13/19 documented as of this encounter"
--- OUTSIDE RECORDS SUMMARY | 2023-06-26 18:39 | External Medical Summary | Summary of Care ---
Author Name Unknown Organization [facility] Address [address] [place] [address] Phone [phone] Care Team Providers Care Nuclear Medicine Technician Name Role Phone Lu Montes DO Primary Care Provider [phone] Encounter Details Date Type Department Care Team (Late st Contact Info) Description 2023 Telephone Urology Divya Arguelles [address] [place] [address] [place] [id number] Mik Govea MD [address] [place] [address] [place] [address] Allergies Active Allergy Reactions Criticality Noted Date Comments Dog Dander 05/21/2009 Asthma flare severe documented as of this encounter (statuses as of 2023) Medications Medication Sig Dispensed Refills Start Date End Date Status Albuterol Sulfate HFA 108 (90 Base) MCG/ACT Inhalation Aerosol SolutionIndications:As thma with severity to be determined INHALE 2 PUFFS 4 TIMES DAILY. 18 g 1 09/20/2022 Active documented as of this encounter (statuses as of 2023) Active Problems Problem Noted Date Diagnosed Date Tobacco use disorder 05/25/2009 Asthma with severity to be determined Overview: ICD-10 update of inactive term Tobacco use disorder Anxiety Depression Anxiety OA (osteoarthritis) documented as of this encounter (statuses as of 2023) Resolved Problems Problem Noted Date Diagnosed Date Resolved Date Major depressive disorder Overview: ICD-10 update of inactive term documented as of this encounter (statuses as of 2023) Immunizations Name Administration Dates Next Due Pneumococcal [...] on file documented as of this encounter Plan of Treatment Upcoming Encounters Date Type Department Care Team (Late st Contact Info) Description 10/11/2023 9:00 AM EDT Office Visit Urology, [facility] [address] [facility] [place] [address] Mik Govea MD 27 [facility] [address] [place] [address] Scheduled Procedures Name Priority Associated Diagnoses Date/Ti me COLONOSCOPY FLEXIBLE PROXIMA L DIAGNOSTIC Recall History of colonic polyps Health Maintenance Due Date Last Done Comments DISCUSS TOBACCO CESSATION (REFER TO SMARTSET #4256) 1970 Hepatitis B (1 of 3 - [...] 12/28/2006 LUNG CANCER SCREENING - USE SMARTSET 93436 Completed 10/11/2022 GARDASIL-HPV IMMUNIZATION SERIES Aged Out No longer eligible based on patient's age to complete this topic MENINGOCOCCAL (MENACTRA/MENVEO) Aged Out No longer eligible based on patient's age to complete this topic documented as of this encounter Medical Devices Not on filedocumented as of this encounter Care Teams Nuclear Medicine Technician Relationship Specialty Start Date End Date Lu Montes DO [address] [place] [address] PCP - General Family Medicine 03/13/19 documented as of this encounter
[2023-06-26] MEDS: oxyCODONE HCL IR 5 MG TAB (IMMEDIATE RELEASE) PO PRN (19:27)
[2023-06-26] MEDS: ACETAMINOPHEN 500 MG TAB PO SCH (20:29)
[2023-06-26] MEDS: DOCUSATE SODIUM 100 MG CAP PO SCH (20:30)
[2023-06-26] MEDS ORDERED: ACETAMINOPHEN 500 MG TAB PO SCH (21:00)
[2023-06-27 07:28] LABS: Basophils # (auto) 0.06 K/uL (0.00-0.20); Basophils % (auto) 0.6 %; Eosinophils # (auto) 0.23 K/uL (0.00-0.50); Eosinophils % (auto) 2.2 %; Hematocrit (blood only) 41.4 % (42.0-52.0); Hemoglobin 14.5 g/dl (14.0-18.0); Immature Granulocytes # (auto) 0.07 K/uL (0.01-0.20); Immature Granulocytes % (auto) 0.7 %; Lymphocytes # (auto) 1.37 K/uL (1.20-3.40); Lymphocytes % (auto) 13.3 %; Mean Corpuscular Hemoglobin 31.1 pg (25.0-34.0); Mean Corpuscular Volume 88.8 fL (80.0-100.0); Mean Platelet Volume 9.1 fL (9.4-12.4); Monocytes # (auto) 0.66 K/uL (0.11-0.59); Monocytes % (auto) 6.4 %; Neutrophils % (auto) 76.8 %; Platelet Count 263 K/uL (130-400); RDW Coefficient of Variation 12.2 % (11.5-14.5); RDW Standard Deviation 39.2 fL (36.4-46.3); Red Blood Count 4.66 M/uL (4.70-6.10); White Blood Count 10.29 K/ul (4.8-10.8)
[2023-06-27 07:33] VITALS: RESP 18; O2SAT 95
[2023-06-27 07:41] LABS: BUN Creatinine Ratio 14.5 (10-20); Calcium 8.6 mg/dl (8.6-10.3); Creatinine Clr Calc Pharmacy 121.9 ml/min; Est GFR (African American) 114.8 ml/min; Est GFR (Non-African American) 99.1 ml/min
[2023-06-27] MEDS: NICOTINE 21 MG/24 HR TDSY TD SCH (08:55)
--- NOTE | 2023-06-27 13:23 | Orthopedic Consultation ---
Date of Consultation June 27, 2023 Assessment & Plan (1) Lumbar compression fracture: Assessment L1 compression fracture. Plan at this time we will have him fitted with an TLSO brace. This is to be worn when up in bed and ambulating. Understands that he is to undergo very light activity for the next 2 weeks. Will reassess in the office. That time we may consider increasing his activities. From orthopedic standpoint he is stable to return home today. History of Present Illness Reason for Consultation: Lumbar and sacral fractures Attending Physician: Man Vlilarreal MD History of Present Illness This is a 53-year-old male presents emergency room yesterday after falling approximately 2 feet from a ladder. He landed directly on his buttocks. He sustained immediate onset of pain. Was taken emergency room and after undergoing imaging determined to have an L1 compression fractures as well as nondisplaced sacral fracture. This morning he is comfortable. He states been able to get out of bed to the bathroom without too much difficulty. He is requiring pain medications. He denies any numbness or tingling to lower extremities. Allergies Allergy/AdvReac Type Severity Reaction Status Date / Time animal dander AdvReac Unknown Verified 06/26/23 15:44 Home Medications Medication Instructions Recorded Confirmed Type albuterol sulfate 90 mcg/actuation 2 puff inhalation QID PRN 06/26/23 06/26/23 History aerosol inhaler Shortness Of Breath Or Wheezing Patient History Medical History Anxiety and depression Tobacco use Asthma Surgical History No pertinent past surgical history Family History (Updated 06/26/23 @ 15:47 by Yasmin Lopez PA-C) Mother Diabetes Sister Diabetes Lung cancer Father Heart disease Social History Smoking Status: Current every day smoker Tobacco Type: Cigarettes Age Started Using Tobacco: 13; Cigarettes Per Day: 1 pack per day; Second Hand Exposure: No; Do You Dip or Chew Tobacco: No; Hx Alcohol Use: No Hx Substance Use: No Preferred Language: Lithuanian Communication Ability: [employer] Required: No Beliefs That Will Affect Care: None Current Living Situation: Spouse and Family Other Information That Helps Us Care for You: No Feels Safe at Home: Yes Safety Concerns: Feels Safe At This Time Assistive Devices: None Physical Exam Physical Exam: On exam is constricted testing. He is comfortable. Sensory is intact. Results & Data Vital Signs (Past 12 Hours) Vital Signs Temp Pulse Resp BP Pulse Ox O2 Del Method 06/27/23 07:40 Room Air 06/27/23 07:32 37.0 C 77 18 146/78 H 95 Room Air 06/27/23 02:09 Room Air (1) Lumbar compression fracture Encounter type: initial encounter Lumbar vertebra fracture level: L1 Qualified Code(s): S32.010A - Wedge compression fracture of first lumbar vertebra, initial encounter for closed fracture
--- NOTE | 2023-06-27 15:21 | Hospitalist Progress Note ---
Date of Service June 27, 2023 Assessment & Plan (1) Lumbar compression fracture: (2) Fx sacrum/coccyx-closed: (3) Fall: Plan: Patient is a 53-year-old male with PMH of asthma, anxiety, depression, tobacco use presented to ER with complaint of 2-3 foot fall off a ladder, landing on buttocks and low back pain. Lumbar compression fracture (L1) Nondisplaced fracture through the S4 level of the sacrum Possible nondisplaced proximal coccygeal fracture --Lumbar CT:Acute appearing 40% compression deformity of the L1 vertebral body with mild paravertebral edema and no retropulsion. --Pelvic CT:Nondisplaced fracture through the S4 level of the sacrum. Possible nondisplaced fracture within the proximal coccyx. Fall precautions Pain control Appreciate orthopedics input Continue activity with brace as recommended by orthopedic Needs follow-up with orthopedics on discharge (4) Leukocytosis: Plan: Leukocytosis likely reactive Resolved No obvious source of infection Monitor (5) Asthma: Plan: No signs of exacerbation Albuterol neb as needed (6) Tobacco use: Plan: Smoking cessation encouraged Nicotine patch DVT Prophylaxis SCDs Code Status Full Code Admission and Anticipated Discharge Date Admission Date: June 26, 2023 Subjective Patient is seen and examined at bedside States having back pain which is controlled Denies any nausea, vomiting, chest pain, dyspnea Discussed with patient's family at bedside Eager to get discharged No other complaints Review of Systems Review of Systems: All systems reviewed & are unremarkable except as noted in Subjective Physical Exam Physical Exam: Physical Exam: Vitals signs as noted above General Appearance:Obese, no apparent distress Head: normocephalic, Atraumatic Eyes: normal inspection, EOMI Neck: supple, Trachea midline Respiratory/Chest: Normal breath sounds, CTA, No accessory muscle use Cardiovascular: S1, S2, No murmur Abdomen/GI:Soft, Non tender, Bowel sounds present Back+ 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 Extremities/Musculoskeletal:normal inspection, no edema Neurologic/Psych:AAOX3, grossly no focal neurological deficits Skin: normal color, warm Results & Data Results & Data Vital Signs (Past 12 Hours) Vital Signs Temp Pulse Resp BP Pulse Ox O2 Del Method 06/27/23 14:47 36.7 C 78 18 111/73 95 Room Air 06/27/23 07:40 Room Air 06/27/23 07:32 37.0 C 77 18 146/78 H 95 Room Air Laboratory Results Short CBC 06/26/23 06/27/23 Range/Units 16:26 06:53 WBC 16.07 H 10.29 (4.8-10.8) K/ul Hgb 14.5 14.5 (14.0-18.0) g/dl Hct 41.1 L 41.4 L (42.0-52.0) % Plt Count 286 263 (130-400) K/uL BMP 06/26/23 06/27/23 16:26 06:53 Sodium 137 135 L Potassium 3.9 4.0 Chloride 106 106 Carbon Dioxide 24 23 BUN 12 12 Creatinine 0.92 0.83 Glucose 146 H 123 H Calcium 8.8 8.6 Liver Function 06/26/23 Range/Units 16:26 Total Bilirubin 0.6 (0.2-1.0) mg/dl AST 21 (13-39) U/L ALT 13 (7-52) U/L Alkaline Phosphatase 62 (34-104) U/L Albumin 4.0 (3.4-5.0) gm/dl (1) Lumbar compression fracture Encounter type: initial encounter Lumbar vertebra fracture level: L1 Qualified Code(s): S32.010A - Wedge compression fracture of first lumbar vertebra, initial encounter for closed fracture (2) Fx sacrum/coccyx-closed Encounter type: initial encounter Qualified Code(s): S32.10XA - Unspecified fracture of sacrum, initial encounter for closed fracture; S32.2XXA - Fracture of coccyx, initial encounter for closed fracture (3) Fall Encounter type: initial encounter Qualified Code(s): W19.XXXA - Unspecified fall, initial encounter
[2023-06-28 07:00] VITALS: BP 124/78; PULSE 81; TEMP 98.1
[2023-06-28 07:09] LABS: Hematocrit (blood only) 41.3 % (42.0-52.0); Hemoglobin 14.8 g/dl (14.0-18.0); Mean Corpuscular Hemoglobin 31.5 pg (25.0-34.0); Mean Corpuscular Hgb Conc 35.8 g/dL (32.0-36.0); Mean Corpuscular Volume 87.9 fL (80.0-100.0); Platelet Count 266 K/uL (130-400); RDW Coefficient of Variation 12.1 % (11.5-14.5); RDW Standard Deviation 38.9 fL (36.4-46.3); White Blood Count 9.11 K/ul (4.8-10.8)
[2023-06-28 07:24] LABS: BUN Creatinine Ratio 15.5 (10-20); Calcium 8.7 mg/dl (8.6-10.3); Creatinine Clr Calc Pharmacy 120.4 ml/min; Est GFR (African American) 114.2 ml/min; Est GFR (Non-African American) 98.6 ml/min; Potassium 4.1 mmol/L (3.5-5.1)
--- NOTE | 2023-06-28 09:51 | Hospitalist Progress Note ---
Date of Service June 28, 2023 Assessment & Plan (1) Lumbar compression fracture: (2) Fx sacrum/coccyx-closed: (3) Fall: Plan: Patient is a 53-year-old male with PMH of asthma, anxiety, depression, tobacco use presented to ER with complaint of 2-3 foot fall off a ladder, landing on buttocks and low back pain. Lumbar compression fracture (L1) Nondisplaced fracture through the S4 level of the sacrum Possible nondisplaced proximal coccygeal fracture --Lumbar CT:Acute appearing 40% compression deformity of the L1 vertebral body with mild paravertebral edema and no retropulsion. --Pelvic CT:Nondisplaced fracture through the S4 level of the sacrum. Possible nondisplaced fracture within the proximal coccyx. Fall precautions Pain control Appreciate orthopedics input Continue activity with brace as recommended by orthopedic Needs follow-up with orthopedics on discharge PTOT eval done (4) Leukocytosis: Plan: Leukocytosis likely reactive Resolved No obvious source of infection Monitor (5) Asthma: Plan: No signs of exacerbation Albuterol neb as needed (6) Tobacco use: Plan: Smoking cessation encouraged Nicotine patch DVT Prophylaxis SCDs Code Status Full Code Admission and Anticipated Discharge Date Admission Date: June 26, 2023 Subjective Patient is seen and examined at bedside States back pain is well-controlled Had PT OT evaluation earlier today Offers no new complaints Eager to get discharged Denies any nausea, vomiting, chest pain, dyspnea Review of Systems Review of Systems: All systems reviewed & are unremarkable except as noted in Subjective Physical Exam Physical Exam: Physical Exam: Vitals signs as noted above General Appearance:Obese, no apparent distress Head: normocephalic, Atraumatic Eyes: normal inspection, EOMI Neck: supple, Trachea midline Respiratory/Chest: Normal breath sounds, CTA, No accessory muscle use Cardiovascular: S1, S2, No murmur Abdomen/GI:Soft, Non tender, Bowel sounds present Back+ 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 Extremities/Musculoskeletal:normal inspection, no edema Neurologic/Psych:AAOX3, grossly no focal neurological deficits Skin: normal color, warm Results & Data Results & Data Vital Signs (Past 12 Hours) Vital Signs Temp Pulse Resp BP Pulse Ox O2 Del Method 06/28/23 07:40 Room Air 06/28/23 06:58 36.7 C 81 18 124/78 95 Room Air Laboratory Results Short CBC 06/28/23 Range/Units 06:44 WBC 9.11 (4.8-10.8) K/ul Hgb 14.8 (14.0-18.0) g/dl Hct 41.3 L (42.0-52.0) % Plt Count 266 (130-400) K/uL BMP 06/28/23 06:44 Sodium 136 Potassium 4.1 Chloride 105 Carbon Dioxide 25 BUN 13 Creatinine 0.84 Glucose 127 H Calcium 8.7 (1) Lumbar compression fracture Encounter type: initial encounter Lumbar vertebra fracture level: L1 Qualified Code(s): S32.010A - Wedge compression fracture of first lumbar vertebra, initial encounter for closed fracture (2) Fx sacrum/coccyx-closed Encounter type: initial encounter Qualified Code(s): S32.10XA - Unspecified fracture of sacrum, initial encounter for closed fracture; S32.2XXA - Fracture of coccyx, initial encounter for closed fracture (3) Fall Encounter type: initial encounter Qualified Code(s): W19.XXXA - Unspecified fall, initial encounter
--- NOTE | 2023-06-28 14:19 | Discharge Summary ---
Date of Service June 28, 2023 Admission HPI Per Admitting Provider Patient is a 53-year-old male with PMH of asthma, anxiety, depression, tobacco use presented to ER with complaint of falling off a ladder and low back pain. History obtained from patient and outpatient chart review. Patient states was working and was approx 2-3 feet up on ladder when the ladder started to tip and patient slipped and fell onto the ground landing on his buttocks. Patient reports discomfort to buttocks and low back. Pain is aggravated with movement. Denies hitting head. Denies any dizziness, chest pain, shortness of breath prior to fall. History of asthma, uses inhaler rarely and is typically when is around animals. Denies any other known injury. Denies fever/chills, diaphoresis, N/V/D/C, WOOTEN, dizziness, syncope, vision changes, neck pain, CP, SOB, palpitations, cough, rhinorrhea, abdominal pain, paresthesias, weakness, extremity weakness, loss of control of bowel or bladder, upper extremity pain, lower extremity pain, extremity edema, rashes, urinary symptoms. Admission Exam Per Admitting Provider General: no acute distress, WDWN Head: normocephalic, atraumatic Eyes: conjunctiva non-injected, anicteric ENT: normal inspection external ears, nose, mucous membranes moist Neck: supple, trachea midline, non-tender, ROM intact Lungs: clear, no respiratory distress, no wheezing/rhonchi/rales CV: RRR, no murmur, no pretibial edema Abd: normal BS, soft, non-tender Back: no discoloration, +tenderness to palpation low back over midline Ext: no cyanosis, no calf tenderness. ROM extremities intact, distal pulses palpable, sensation to light touch intact. Neuro: A&O x 3, no focal deficits noted, normal affect Skin: warm, dry Principal Diagnosis Lumbar compression fracture Nondisplaced fracture of sacrum Possible nondisplaced proximal coccygeal fracture Mechanical Fall Discharge Data Allergies Allergy/AdvReac Type Severity Reaction Status Date / Time animal dander AdvReac Unknown Verified 06/26/23 15:44 Consultations 06/26/23 15:28 ED Decision to Admit Stat 06/26/23 18:31 Consult Orthopedic Spine Surgery Routine Procedures Performed Laboratory Results WBC 9.11 K/ul (4.8-10.8) 06/28/23 06:44 RBC 4.70 M/uL (4.70-6.10) 06/28/23 06:44 Hgb 14.8 g/dl (14.0-18.0) 06/28/23 06:44 Hct 41.3 % (42.0-52.0) L 06/28/23 06:44 MCV 87.9 fL (80.0-100.0) 06/28/23 06:44 MCH 31.5 pg (25.0-34.0) 06/28/23 06:44 MCHC 35.8 g/dL (32.0-36.0) 06/28/23 06:44 RDW Std Deviation 38.9 fL (36.4-46.3) 06/28/23 06:44 RDW Coeff of Lakhwinder 12.1 % (11.5-14.5) 06/28/23 06:44 Plt Count 266 K/uL (130-400) 06/28/23 06:44 MPV 9.0 fL (9.4-12.4) L 06/28/23 06:44 Immature Gran % (Auto) 0.7 % 06/27/23 06:53 Neut % (Auto) 76.8 % 06/27/23 06:53 Lymph % (Auto) 13.3 % 06/27/23 06:53 [place] % (Auto) 6.4 % 06/27/23 06:53 Eos % (Auto) 2.2 % 06/27/23 06:53 Baso % (Auto) 0.6 % 06/27/23 06:53 Neut # (Auto) 7.90 K/uL (1.40-6.50) H 06/27/23 06:53 Lymph # (Auto) 1.37 K/uL (1.20-3.40) 06/27/23 06:53 [place] # (Auto) 0.66 K/uL (0.11-0.59) H 06/27/23 06:53 Eos # (Auto) 0.23 K/uL (0.00-0.50) 06/27/23 06:53 Baso # (Auto) 0.06 K/uL (0.00-0.20) 06/27/23 06:53 Immature Gran # (Auto) 0.07 K/uL (0.01-0.20) 06/27/23 06:53 PT 11.5 Seconds (9.0-12.0) 06/26/23 16:26 INR 1.1 (0.9-1.1) 06/26/23 16:26 APTT 26 Seconds (21-31) 06/26/23 16:26 PTT Ratio 0.9 06/26/23 16:26 Sodium 136 mmol/L (136-145) 06/28/23 06:44 Potassium 4.1 mmol/L (3.5-5.1) 06/28/23 06:44 Chloride 105 mmol/L (98-107) 06/28/23 06:44 Carbon Dioxide 25 mmol/L (21-32) 06/28/23 06:44 Anion Gap 6 (3-11) 06/28/23 06:44 BUN 13 mg/dl (6-23) 06/28/23 06:44 Creatinine 0.84 mg/dl (0.6-1.4) 06/28/23 06:44 Est Cr Clr Drug Dosing 120.4 ml/min 06/28/23 06:44 Est GFR ( Amer) 114.2 ml/min 06/28/23 06:44 Est GFR (Non-Af Amer) 98.6 ml/min 06/28/23 06:44 BUN/Creatinine Ratio 15.5 (10-20) 06/28/23 06:44 Glucose 127 mg/dl (70-99(Fasting)) H 06/28/23 06:44 Calcium 8.7 mg/dl (8.6-10.3) 06/28/23 06:44 Total Bilirubin 0.6 mg/dl (0.2-1.0) 06/26/23 16:26 AST 21 U/L (13-39) 06/26/23 16:26 ALT 13 U/L (7-52) 06/26/23 16:26 Alkaline Phosphatase 62 U/L (34-104) 06/26/23 16:26 Total Protein 7.1 gm/dl (6.0-8.3) 06/26/23 16:26 Albumin 4.0 gm/dl (3.4-5.0) 06/26/23 16:26 Globulin 3.1 gm/dl (2.5-4.0) 06/26/23 16:26 Albumin/Globulin Ratio 1.3 (0.9-2) 06/26/23 16:[address] 06/26/23 12:52 CT lumbar spine wo con HISTORY: 53 years-old Male fall onto buttock, upper lumbar tender acute low back pain status post fall COMPARISON: CT pelvis of same day TECHNIQUE: Multiple axial CT images of the lumbar spine were obtained with the use of IV contrast. A dose lowering technique was used consistent with the principals of ALARA. FINDINGS: Acute lower sacral fracture is not imaged on this study. Mild multilevel intervertebral disc space narrowing, spondylitic spurring and moderate facet arthrosis. There is an acute appearing anterosuperior L1 compression deformity demonstrating approximately 40% vertebral body height loss without retropulsion. No fracture extension into the posterior elements. There is only minimal paravertebral edema. No additional acute fracture or subluxation identified. Suboptimal evaluation of the central canal and neural foramina by CT technique. No high-grade central canal or foraminal stenosis identified. There is mild multilevel central canal and neural foraminal narrowing secondary to annular disc bulging and spondylitic spurring. There is suggestion of moderate left-s ided foraminal narrowing at L5-S1. The imaged intra-abdominal structures demonstrate no acute abnormality. Atherosclerosis of the aorta. IMPRESSION: Acute appearing 40% compression deformity of the L1 vertebral body with mild paravertebral edema and no retropulsion. ACT 112: Negative or not required by law. The above report was generated using voice recognition software. It may contain grammatical, syntax or spelling errors. Electronically signed by: Venancio Burns M.D. 06/26/2023 2:[address] 06/26/23 12:[address] DOSE: HISTORY: fall onto buttock, high lumbar/sacral tender TECHNIQUE: Multiaxial CT images of the pelvis were performed and reformatted in the sagittal and coronal plane without the use of contrast. A dose lowering technique was utilized adhering to the principles of ALARA. COMPARISON: None. FINDINGS: The lumbar spine will be better appreciated on the same day lumbar spine CT. There is nondisplaced oblique fracture through the S4 level of the sacrum. There is a possible nondisplaced oblique fracture within the proximal coccyx. These are best seen on the sagittal views. No acute fracture or disloca tion within the right or left hip. No additional fractures within the pelvic bones. 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 There is mild presacral fat stranding/edema. There is a small fat-containing right inguinal hernia. No pelvic hematoma. The prostate gland is enlarged measuring 6.3 cm. No pelvic free fluid or pelvic lymphadenopathy. Colonic diverticulosis. Normal appendix. IMPRESSION: 1. Nondisplaced fracture through the S4 level of the sacrum. 2. Possible nondisplaced fracture within the proximal coccyx. ACT 112: Negative or not required by law. Electronically signed by: Gutierrez Patricia M.D. 06/26/2023 1:41 PM Ordered Studies 06/26/23 12:52 CT lumbar spine wo con Stat CT pelvis wo con Stat Hospital Course (1) Lumbar compression fracture: (2) Fx sacrum/coccyx-closed: (3) Fall: Patient is a 53-year-old male with PMH of asthma, anxiety, depression, tobacco use presented to ER with complaint of 2-3 foot fall off a ladder, landing on buttocks and low back pain. Lumbar compression fracture (L1) Nondisplaced fracture through the S4 level of the sacrum Possible nondisplaced proximal coccygeal fracture --Lumbar CT:Acute appearing 40% compression deformity of the L1 vertebral body with mild paravertebral edema and no retropulsion. --Pelvic CT:Nondisplaced fracture through the S4 level of the sacrum. Possible nondisplaced fracture within the proximal coccyx. Fall precautions Pain control Appreciate orthopedics input Continue activity with brace as recommended by orthopedic Needs follow-up with orthopedics on discharge PTOT eval done (4) Leukocytosis: Leukocytosis likely reactive Resolved No obvious source of infection Monitor (5) Asthma: No signs of exacerbation Albuterol neb as needed (6) Tobacco use: Smoking cessation encouraged Nicotine patch DVT Prophylaxis SCDs Code Status Full Code Total Time Total Time Spent Total Time Spent (In Minutes): 50 minutes Discharge Plan Discharge Items Patient Disposition: Home - Self-Care Reason For Visit: COMPRESSION FRACTURE Discharge Diagnosis: Lumbar compression fracture Nondisplaced fracture of sacrum Possible nondisplaced proximal coccygeal fracture Mechanical Fall Condition on Discharge: Fair Activity: Per Instructions section Non-emergency contact: Primary Care Provider Call non-emergency contact if: you have any medication questions, your symptoms worsen, your pain is concerning for you and you have a fever Follow-up/Referrals: Jaya Hough DO [Surgeon] - (Office will call patient with an appointment date and time) Lu Montes DO [Primary Care Provider] - 07/04/23 10:00 am (Date & Time 07/04/2023 10:00 AM Provider Lu Montes DO [facility] ) Diet: Regular Addtl Attending Provider Instructions: Follow-up with your primary care physician on 07/04/2023 10:00 AM Follow-up with your orthopedic surgeon Dr. Hough in 2 weeks as advised --- Use TLSO brace when up in bed and ambulating/activity as recommended by orthopedic surgeon. ---Avoid any strenuous activity/exercise per your orthopedic surgeon. Seek immediate medical attention if your symptoms reoccur or worsen Please take all medications as instructed on discharge list below. Please call if you have any questions or problems. You can reach a [facility] hospitalist on duty at [facility] 24 hours a day by calling [phone] Pending Studies at Discharge: No Stand-Alone Forms: [facility], Pain - Opioid Pain Management, Smoking Cessation Medications and DC Order Prescriptions: New oxycodone 5 mg Tablet 5 mg PO Q6H PRN (Reason: pain) Qty: 15 0RF Continued albuterol sulfate 90 mcg/actuation HFA aerosol inhaler 2 puff INHALATION QID PRN (Reason: Shortness Of Breath Or Wheezing) Discharge Orders: Discharge Order (Routine); Ordered 06/28/23 Ordered By: Man Saleem/Other Patient Handouts: How Bones Heal, ED Fracture, Vertebral Compression Admission Data Admit Date/Time: 06/26/23 15:59 Attending Provider: Man Villarreal Admit Provider: Vy Ortiz Primary Care Provider: Lu Montes. Other Providers: Jaya Hough; Vy Ortiz Other Interventions: Discharge Summary Assessment (RN) Last Done: 06/28/23 09:35
== END 2023-06-28 11:11 | disposition home or self-care (01) | DRG 552 ==
LOC: ED 12:14 → 3N 15:59 → SUATTDRO 15:59 → 3N 17:54
DX: Y92.89 Other specified places as the place of occurrence of the external cause; W11.XXXA Fall on and from ladder, initial encounter; S32.000A Wedge compression fracture of unspecified lumbar vertebra, initial encounter for closed fracture; Z71.6 Tobacco abuse counseling; Y93.H9 Activity, other involving exterior property and land maintenance, building and construction; S32.10XA Unspecified fracture of sacrum, initial encounter for closed fracture; D72.829 Elevated white blood cell count, unspecified; Z91.048 Other nonmedicinal substance allergy status; F17.210 Nicotine dependence, cigarettes, uncomplicated; Y99.0 Civilian activity done for income or pay; J45.909 Unspecified asthma, uncomplicated; S32.2XXA Fracture of coccyx, initial encounter for closed fracture